=== PATIENT | female | born 1995 | race Caucasian/White ===

== ENCOUNTER 2017-01-12 22:29 | Emergency (ER) | payer OTHER ==
[2017-01-12 22:37] VITALS: TEMP 36.9; O2SAT 98
--- NOTE | 2017-01-12 23:06 | EMERGENCY ROOM VISIT NOTE ---
History First contact with patient: 22:31 Chief Complaint: ALCOHOL OVERDOSE Stated Complaint: ALCOHOL OVERDOSE Nursing Triage Summary: Patient presents S for evaluation of alcohol overdose. Patient was witnessed by PD on survellience, being carried into her dorm by friends. Patient was found in bed by police. Admits to drinking alcohol tonight. Patient uncooperative; security to bedside. No obvious s/s of trauma noted. History of Present Illness The patient is a 21 year old female who presents to the Emergency Room via BLS for evaluation of altered mental status secondary to alcohol overdose. Patient is uncooperative and history is difficult to obtain. Per EMS, the patient was witnessed by police being carried into her door by friends. The patient was found in bed by the police. She admits to drinking alcohol tonight but refuses to say what she was drinking. She denies drug use. She denies trauma. Review of Systems A complete 10-point Review of Systems was discussed with the patient, with pertinent positives and negatives listed in the History of Present Illness. All remaining Review of Systems questions can be considered negative unless otherwise specified. Social History Smoking Status: Never Smoker Current/Historical Medications Scheduled Control Pills ( Control Pills), 1 TAB PO DAILY Allergies Coded Allergies: No Known Allergies (Unverified , 01/13/17) Physical Exam Vital Signs Date Time Temp Pulse Resp B/P Pulse Ox O2 Delivery O2 Flow Rate FiO2 01/13/17 06:18 112 98 01/13/17 05:48 83 19 100 01/13/17 05:18 92 15 99 01/13/17 05:13 105/74 01/13/17 05:04 97 16 99 01/13/17 04:04 96 97 01/13/17 04:00 106/59 01/13/17 03:34 94 96 01/13/17 03:04 92 96 01/13/17 03:00 101/54 01/13/17 02:34 90 16 98 01/13/17 02:04 93 14 97 01/13/17 02:00 109/57 01/13/17 01:34 92 15 98 01/13/17 01:04 89 15 97 01/13/17 01:00 95/47 01/13/17 00:34 89 14 96 01/13/17 00:15 106/56 01/13/17 00:04 102 15 96 3/1/17 23:59 82 17 97 01/12/17 23:29 86 17 96 01/12/17 22:59 104 97 01/12/17 22:39 116 01/12/17 22:37 98 Room Air 01/12/17 22:37 36.9 104 18 95/70 98 Room Air 01/12/17 22:36 95/70 01/12/17 22:34 Physical Exam VITALS: Vitals are noted on the nurse's note and reviewed by myself. Vital signs stable. GENERAL: This is a 21-year-old female, intoxicated, uncooperative, smells of EtOH, well-developed well-nourished. SKIN: Capillary reflex less than 2 seconds. HEENT: Normocephalic. PERRLA. EOMI. tympanic membranes pearly chaudhari bilaterally. Nares patent. Mucous membranes moist. Neck is supple without nuchal rigidity. HEART: Regular rate and rhythm without murmurs gallops or rubs. LUNGS: Clear to auscultation bilaterally without wheezes, rales or rhonchi. No retractions or accessory muscle use. ABDOMEN: Positive bowel sounds x 4. Soft, nontender to palpation. MUSCULOSKELETAL: No gross musculoskeletal defects. Full range of motion. Strength 5/5 throughout. NEURO: Patient was visibly intoxicated, sedated and refused to answer questions. Medical Decision & Procedures Laboratory Results 01/12/17 23:09 Test 01/12/17 23:09 Anion Gap 13.0 mmol/L (3-11) Estimated GFR () 149.2 Estimated GFR (Non- 128.7 BUN/Creatinine Ratio 10.2 (10-20) Calcium Level 8.2 mg/dl (8.5-10.1) Human Chorionic Gonadotropin, Qual NEG (NEG) Ethyl Alcohol mg/dL 338.0 mg/dl (0-3) Medical Decision Differential diagnosis includes alcohol intoxication, drug use, head injury, among others. The patient was evaluated as above. She was initially uncooperative. Security was called into the room and the patient did calm down at that time. Her blood alcohol level was found to be 338. The patient was observed for approximately 9 hours until she was awake and alert. At that time, she was reevaluated and had no complaints. I did feel she was stable for discharge home. Conservative measures were discussed. She verbalized understanding and was discharged home in good condition. Impression Primary Impression: Alcohol use with intoxication Departure Information Dispostion Home / Self-Care Condition GOOD Referrals No Doctor, Assigned (PCP) Patient Instructions [facility] Additional Instructions Rest and drink plenty of fluids. For pain control, you can use the following [id number] medicines (if >12 yo): - Regular strength (325mg/tab) Tylenol (acetaminophen) 2 tabs every 4-6 hours as needed. Do not exceed 12 tablets in a 24 hour period. Avoid taking more than 4 grams (4000 mg) of Tylenol per day. This includes any other sources of acetaminophen you may take on a regular basis. - Regular strength (200 mg/tab) Advil (ibuprofen) 1-2 tabs every 4-6 hours as needed. Do not exceed a dose of 3200 mg per day. Follow-up with [facility] or your primary care provider as needed.
[2017-01-12 23:42] LABS: BLOOD UREA NITROGEN 7 mg/dl (7-18); BUN/CREATININE RATIO 10.2 (10-20); CALCIUM 8.2 mg/dl (8.5-10.1); CARBON DIOXIDE 19 mmol/L (21-32); CHLORIDE 112 mmol/L (98-107); CREATININE 0.65 mg/dl (0.60-1.20); GLUCOSE 93 mg/dl (70-99); POTASSIUM 3.5 mmol/L (3.5-5.1); SODIUM 144 mmol/L (136-145)
[2017-01-12 23:45] LABS: PREG INTERNAL NEGATIVE QC NEG CLEAR BACKGROUND; PREG INTERNAL POSITIVE QC POS CONTROL LINE
[2017-01-13] MEDS ORDERED: BCPILLS PO (05:35)
[2017-01-13 07:00] VITALS: BP 114/77; PULSE 108; O2SAT 99
== END 2017-01-13 07:32 | disposition home or self-care (01) ==
LOC: EDBD 22:29 → C.EDB 22:31
DX: F10.929 Alcohol use, unspecified with intoxication, unspecified (principal)